=== PATIENT | female | born 1970 | race Caucasian/White ===

== ENCOUNTER 2023-03-11 20:38 | Emergency (ER) | payer SELFPAY ==
[2023-03-11] VITALS (17 sets, daily range): BP systolic 127–150; BP diastolic 89–99; PULSE 102–127; RESP 12–21; TEMP 36.8; O2SAT 92–100; BMI 31.9
--- NOTE | 2023-03-11 20:49 | ED.AMS1 ---
HPI - Altered Mental Status General Chief Complaint: Altered Mental Status Stated Complaint: ALTERED Time Seen by Provider: 03/11/23 20:43 Source: patient Mode of arrival: ambulance Limitations: no limitations History of Present Illness HPI narrative: patient states she was at her parent's home. States she had gotten out of the shower and walked by a heat vent and she inhaled paint fumes. States she developed chest pressure and a taste in her mouth. Denies nausea or vomiting. Not short of breath. States it freaked her out. Past history of anxiety. States she has not had an anxiety attack in a long time. States she still has tightness of her chest but improved. patient has history of parnoia Related Data Home Medications Medication Instructions Recorded Confirmed No Known Home Medications 03/11/23 03/11/23 Allergies Allergy/AdvReac Type Severity Reaction Status Date / Time No Known Drug Allergies Allergy Verified 03/11/23 20:41 Review of Systems ROS Status of ROS 10 or more systems reviewed and unremarkable except as noted in history and below PFSH PFS Social History Smoking status: Former smoker Exam Constitutional Vital Signs, click to edit/add: Last Vital Signs Temp 98.3 F 03/11/23 20:41 Pulse 104 H 03/11/23 23:50 Resp 12 03/11/23 23:50 BP 127/89 03/11/23 23:00 Pulse Ox 92 L 03/11/23 23:50 Common normals: no apparent distress, average body habitus, oriented x3, no limitations, healthy appearing, alert and well nourished [facility] Common normals: normocephalic and head/scalp atraumatic Eye Common normals: EOMs intact bilaterally and conjunctivae normal Respiratory Common normals: normal respiratory effort, no retractions, no use of accessory muscles and clear to auscultation bilaterally Cardio Common normals: regular rate, regular rhythm, S1 normal heart sound and S2 normal heart sound GI Common normals: Normal to inspection, nondistended, normoactive bowel sounds present and soft to palpation Extremity Common normals: normal to inspection and full ROM Neuro Common normals: oriented x3, CN's II-XII intact bilaterally, moves all extremities and no focal motor deficits Psych Appearance: grossly normal Course Vital Signs Vital signs: Vital Signs Temperature 98.3 F 03/11/23 20:41 Pulse Rate 118 H 03/11/23 20:41 Respiratory Rate 19 03/11/23 20:41 Blood Pressure 150/99 H 03/11/23 20:41 Pulse Oximetry 98 03/11/23 20:41 Temperature 98.3 F 03/11/23 20:41 Pulse Rate 104 H 03/11/23 23:50 Respiratory Rate 12 03/11/23 23:50 Blood Pressure 127/89 03/11/23 23:00 Pulse Oximetry 92 L 03/11/23 23:50 MDM - Altered Mental Status MDM Narrative Medical decision making narrative: patient has past history of paranoia and anxiety. Developed chest pain tonight after she was walking by a heater vent and smelled paint. Arrives via paramedics. Denies depression. Treated with ativan and GI cocktail with resolution of her pain. cardiac enzymes neg. cxray neg. EKG with sinus tach. Patient did talk to mental health and they felt she could be managed as an out patient. Patient discharged home to follow up with her doctor provided with a prescription of prilosec for possible GERD Lab Data Labs: Lab Results 03/11/23 03/11/23 Range/Units 21:18 22:28 WBC 12.2 H (4.0-11.0) 10^3/uL RBC 4.95 (4.20-5.40) 10^6/uL Hgb 14.6 (12.0-16.0) g/dL Hct 44.9 (36.0-48.0) % MCV 90.7 (81.0-99.0) fL MCH 29.5 (26.7-34.0) pg MCHC 32.5 (29.9-35.2) g/dL RDW 12.8 (11.0-15.0) % Plt Count 314 (150-450) 10^3/uL MPV 9.6 (9.5-13.5) fL Neut % (Auto) 52.3 (43.0-75.0) % Lymph % (Auto) 33.1 (20.5-60.0) % [place] % (Auto) 12.0 (1.7-12.0) % Eos % (Auto) 1.7 (0.9-7.0) % Baso % (Auto) 0.7 (0.2-2.0) % Neut # (Auto) 6.4 (1.4-6.5) 10^3/uL Lymph # (Auto) 4.0 H (1.2-3.8) 10^3/uL [place] # (Auto) 1.5 H (0.3-0.8) 10^3/uL Eos # (Auto) 0.2 (0.0-0.7) 10^3/uL Baso # (Auto) 0.1 (0.0-0.1) 10^3/uL Abs Immat Gran (auto) 0.02 (0.00-0.03) 10^3/uL Imm/Tot Granulo (auto) 0.2 (0.0-0.5) % Sodium 140 (136-145) mmol/L Potassium 3.7 (3.5-5.1) mmol/L Chloride 102 (98-107) mmol/L Carbon Dioxide 29.4 (21.0-32.0) mmol/L Anion Gap 12.3 BUN 7.0 (7.0-18.0) mg/dL Creatinine 0.76 (0.55-1.02) mg/dL Est GFR ( Amer) >60 (>=60) Est GFR (Non-Af Amer) >60 (>=60) BUN/Creatinine Ratio 9.2 Glucose 102 (74-106) mg/dL Calcium 9.4 (8.5-10.1) mg/dL Troponin I High Sens <4.0 L (4.0-51.3) pg/mL Urine Color Lt. yellow (YELLOW) Urine Clarity Clear (CLEAR) Urine pH 6.5 (5.0-9.0) Ur Specific [place] <=1.005 A (1.005-1.025) Urine Protein Negative (NEG/TRACE) mg/dL Urine Glucose (UA) Negative (NEGATIVE) mg/dL Urine Ketones Negative (NEGATIVE) mg/dL Urine Occult Blood Negative (NEGATIVE) Urine Nitrite Negative (NEGATIVE) Urine Bilirubin Negative (NEGATIVE) Urine Urobilinogen 0.2 (0.2-1.0) EU/dL Ur Leukocyte Esterase Negative (NEGATIVE) Urine Opiates Screen Negative (NEGATIVE) Ur Buprenorphine Scrn Negative (NEGATIVE) Ur Oxycodone Screen Negative (NEGATIVE) Urine Methadone Screen Negative (NEGATIVE) Ur Barbiturates Screen Negative (NEGATIVE) U Tricyclic Antidepress Negative (NEGATIVE) Ur Phencyclidine Scrn Negative (NEGATIVE) Ur Amphetamines Screen Negative (NEGATIVE) U Methamphetamines Scrn Negative (NEGATIVE) U Benzodiazepines Scrn Negative (NEGATIVE) Urine Cocaine Screen Negative (NEGATIVE) U Cannabinoids Screen Negative (NEGATIVE) Discharge Plan Discharge Chief Complaint: Altered Mental Status Clinical Impression: Anxiety, Atypical chest pain Patient Disposition: Home, Self-Care Prescriptions / Home Meds: No Action No Known Home Medications Instructions: Chest Pain (ED), Anxiety (ED) Stand Alone Forms: Portal Instructions Referrals: Physician,Non-Staff, MD [Physician] - 1 week
--- NOTE | 2023-03-11 20:54 | XR_ITS ---
The [address] [address] Patient Name: JAQUELINE YOO MRN: [id number] date: 1970 Sex: F Assigned Patient Location: ER Current Patient Location: ER Accession/Order Number: [id number] Exam Date: 03/11/2023 21:10 Report Date: 03/11/2023 21:26 At the request of: MEAGAN LOOMIS Procedure: XR chest 1V EXAM: XR chest 1V HISTORY: chest pain COMPARISON: None. TECHNIQUE: Single AP radiograph of the chest FINDINGS: No pneumothorax, pleural effusion or consolidation. Normal heart size. No acute osseous abnormality. XR/XR chest 1V IMPRESSION: No acute cardiopulmonary process. Electronically authenticated by: JEANNA TIRADO Date: 03/11/2023 21:26
--- NOTE | 2023-03-11 20:54 | ECG_ITS ---
The [facility] Test Date: 2023-03-11 Pat Name: JAQUELINE YOO Department: Room: - Gender: Female [employer]: : 1970 Requested By: EMILY CARLSON Order Number: [id number] Reading MD: WARREN RAY Measurements Intervals [place] Rate: 117 P: 69 IA: 130 QRS: 80 QRSD: 76 T: 39 QT: 316 QTc: 386 Interpretive Statements 1120 Sinus tachycardia 8102 Low QRS voltage in chest leads 9140 abnormal rhythm ECG No previous ECG available for comparison Electronically Signed On 03-12-2023 9:23:29 EST by WARREN RAY
[2023-03-11 21:25] LABS: Basophils Absolute Auto 0.1 10^3/uL (0.0-0.1); Basophils Percent Auto 0.7 % (0.2-2.0); Eosinophils Absolute Auto 0.2 10^3/uL (0.0-0.7); Eosinophils Percent Auto 1.7 % (0.9-7.0); Hematocrit 44.9 % (36.0-48.0); Hemoglobin 14.6 g/dL (12.0-16.0); Immature Granulocytes Abs Auto 0.02 10^3/uL (0.00-0.03); Immature Granulocytes Pct Auto 0.2 % (0.0-0.5); Lymphocytes Percent Auto 33.1 % (20.5-60.0); Mean Corpuscular HGB Conc 32.5 g/dL (29.9-35.2); Mean Corpuscular Hemoglobin 29.5 pg (26.7-34.0); Mean Corpuscular Volume 90.7 fL (81.0-99.0); Mean Platelet Volume 9.6 fL (9.5-13.5); Monocytes Absolute Auto 1.5 10^3/uL (0.3-0.8); Neutrophils Absolute Auto 6.4 10^3/uL (1.4-6.5); Neutrophils Percent Auto 52.3 % (43.0-75.0); Platelet Count 314 10^3/uL (150-450); Red Blood Count 4.95 10^6/uL (4.20-5.40); Red Cell Distribution Width 12.8 % (11.0-15.0); White Blood Count 12.2 10^3/uL (4.0-11.0)
[2023-03-11 21:49] LABS: Anion Gap 12.3; BUN Creatinine Ratio 9.2; Calcium 9.4 mg/dL (8.5-10.1); Carbon Dioxide 29.4 mmol/L (21.0-32.0); Chloride 102 mmol/L (98-107); Estimated GFR (African America >60 (>=60); Estimated GFR (Non-African Ame >60 (>=60); Glucose 102 mg/dL (74-106); Potassium 3.7 mmol/L (3.5-5.1); Sodium 140 mmol/L (136-145); Troponin I High Sensitivity <4.0 pg/mL (4.0-51.3)
[2023-03-11 22:42] LABS: Bilirubin Urine NEGATIVE (NEGATIVE); Blood Urine NEGATIVE (NEGATIVE); Clarity Urine CLEAR (CLEAR); Color Urine LT. YELLOW (YELLOW); Glucose Urine UA NEGATIVE (NEGATIVE); Ketones Urine NEGATIVE (NEGATIVE); Leukocyte Esterase Urine NEGATIVE (NEGATIVE); Nitrite Urine NEGATIVE (NEGATIVE); Protein Urine NEGATIVE (NEG/TRACE); Specific Gravity Urine <=1.005 (1.005-1.025); Urobilinogen Urine 0.2 EU/dL (0.2-1.0); pH Urine 6.5 (5.0-9.0)
[2023-03-11 22:43] LABS: Urine Microscopic Indicated NO
[2023-03-11 22:50] LABS: Amphetamine Screen Urine NEGATIVE (NEGATIVE); Barbiturates Screen Urine NEGATIVE (NEGATIVE); Benzodiazepines Screen Urine NEGATIVE (NEGATIVE); Buprenorphine Screen Urine NEGATIVE (NEGATIVE); Cannabinoid Screen Urine NEGATIVE (NEGATIVE); Cocaine Screen Urine NEGATIVE (NEGATIVE); Methadone Screen Urine NEGATIVE (NEGATIVE); Methamphetamines Screen Urine NEGATIVE (NEGATIVE); Opiate Screen Urine NEGATIVE (NEGATIVE); Oxycodone Screen Urine NEGATIVE (NEGATIVE); Phencyclidine Screen Urine NEGATIVE (NEGATIVE); Tricyclic Antidepressant Urine NEGATIVE (NEGATIVE)
[2023-03-11] MEDS: lidocaine HCL 15 ML, MAG HYDROX/ALUMINUM HYD/SIMETH 30 ML, HYOSCYAMINE SULFATE 0.25 MG PO (23:02)
[2023-03-12] VITALS: PULSE 109; RESP 14; O2SAT 93
[2023-03-12 00:10] VITALS: PULSE 123; RESP 31; O2SAT 94
[2023-03-12 00:20] VITALS: PULSE 115; RESP 14; O2SAT 94
[2023-03-12 00:23] VITALS: BP 128/78; PULSE 107; RESP 17; O2SAT 95
== END 2023-03-12 00:28 | disposition home or self-care (01) ==
PROVIDERS: Emergency Provider Internal Medicine; PCP Family Medicine
DX: R07.89 Other chest pain (principal); F41.9 Anxiety disorder, unspecified; Z87.891 Personal history of nicotine dependence
CPT/HCPCS: 36415; 71045; 80048; 80307; 81003; 84484; 85025; 93005; 99285